=== PATIENT | female | born 1995 | race Caucasian/White ===

== ENCOUNTER 2024-09-10 08:56 | Outpatient (CLI) | payer OTHER, SELFPAY | END 2024-09-10 08:57 | disposition home or self-care (01) | LOC: NFLDREF 09-15 02:04 | PROVIDERS: Visit Provider Physician Assistant | DX: Z13.6 Encounter for screening for cardiovascular disorders (principal); Z13.1 Encounter for screening for diabetes mellitus; Z13.29 Encounter for screening for other suspected endocrine disorder | CPT/HCPCS: 80061; 82947; 84443 ==

== ENCOUNTER 2024-12-03 09:19 | Outpatient (CLI) | payer OTHER, SELFPAY ==
[2024-12-03 15:27] LABS: Chlamydia DNA Amplified* NOT DETECTED (No Detected); GC DNA Amplified* NOT DETECTED (No Detected)
== END 2024-12-03 09:20 | disposition home or self-care (01) ==
PROVIDERS: Visit Provider Advanced Practice Midwife
DX: Z34.91 Encounter for supervision of normal pregnancy, unspecified, first trimester (principal); Z3A.08 8 weeks gestation of pregnancy
CPT/HCPCS: 76817; 83020; 83021; 85660; 86592; 86703; 86704; 86706; 86762; 86787; 86803; 86850; 86900; 86901; 87086; 87340; 87491; 87591

== ENCOUNTER 2025-01-28 15:11 | Outpatient (CLI) | payer OTHER, SELFPAY | END 2025-01-28 15:12 | disposition home or self-care (01) | LOC: NFLDREF 15:13 | PROVIDERS: Visit Provider Advanced Practice Midwife | DX: Z34.92 Encounter for supervision of normal pregnancy, unspecified, second trimester (principal) | CPT/HCPCS: 81511 ==

== ENCOUNTER 2025-02-18 11:55 | Outpatient (CLI) | payer OTHER, SELFPAY ==
--- NOTE | 2025-02-18 12:15 | CRLHL7_ITS ---
For Patients: As a result of the 21st Century Cures Act, medical imaging exams and procedure reports are released immediately into your electronic medical record. You may view this report before your referring provider. If you have questions, please contact your health care provider. OB ULTRASOUND ANATOMY SURVEY, TRANSABDOMINAL LMP: 10/11/2024. DION by LMP: 07/08/2025. GA: 20 w, 0 d. INDICATION: anatomy. TECHNIQUE: Real time patton scale imaging of the fetus was performed. Evaluate anatomy. Transabdominal imaging performed. position: Vertex. Cervix: Visualized. Technique: Transabdominal. Length of closed cervix: 4.2 cm. Placenta/cord: Posterior. Technique: Transabdominal. Placenta tip to internal OS: 5.8 cm. Umbilical Cord: 3-vessel cord. Placenta insertion: Eccentric. Amniotic Fluid: 3.5 cm SDP (greater than/equal to: 2- less than 8 cm). SURVEY: Observed Structures. Calvarium/Spine: Cerebellum: 2.0 cm, 20 w 5 d. Cisterna Magna: 4.5 mm. Nuchal Fold: 4.2 mm. Lateral Ventricle: 5.5 mm. CSP: Yes. Midline Falx: Yes. Choroid Plexus: Yes. Spine: Yes. Abdomen: Stomach: Yes. Abd Cord Insertion: Yes. Urinary Bladder: Yes. Kidneys: Yes. Diaphragm: Yes. Face: Nose/lips: Yes. Orbital view: Yes. Profile: Yes. Limbs: Upper Extremities: Yes. Lower Extremities: Yes. Hands: Yes. Feet: Yes. Vascular: 4-Chamber Heart: Yes. LVOT: Yes. RVOT: Yes. 3VV: Yes. 3VTV: Yes. BPD: 4.8 cm. 20 w, 3 d, 66.5 percent. HC: 18.1 cm. 20 w, 4 d, 66.2 percent. AC: 15.6 cm. 20 w, 5 d, 69.0 percent. FL: 3.3 cm. 20 w, 2 d, 51.3 percent. FL/AC ratio: 21.07 percent. HC/AC ratio: 1.16. heart rate: 147 bpm. age by this US: 20 w, 4 d. DION by this US: 07/04/2025. EFW: 358.43 g. Weight: 0 lbs, 13 oz. Percentile by DION: 74.3 percent. IMPRESSION: 1. Concordance of clinical and sonographic dating. 2. Incidental eccentric placental cord insertion. 3. Normal anatomic survey. Maurilio Lopez M.D. Diagnostic Radiologist [email or web address] SP/Dictated by: Maurilio Lopez MD @ 02/18/2025 4:30:00 PM (Electronically Signed)
== END 2025-02-18 11:56 | disposition home or self-care (01) ==
LOC: US 11:56
PROVIDERS: Visit Provider Advanced Practice Midwife
DX: Z34.92 Encounter for supervision of normal pregnancy, unspecified, second trimester (principal); Z3A.20 20 weeks gestation of pregnancy
CPT/HCPCS: 76805

== ENCOUNTER 2025-03-14 18:02 | Outpatient (CLI) | payer OTHER, SELFPAY | END 2025-03-14 18:03 | disposition home or self-care (01) | LOC: NFLDREF 03-24 23:18 | PROVIDERS: Visit Provider Nurse Practitioner Family | DX: R19.7 Diarrhea, unspecified (principal) | CPT/HCPCS: 87045; 87046; 87177; 87209; 87427; 87493; 87505 ==

== ENCOUNTER 2025-04-15 09:40 | Outpatient (CLI) | payer OTHER, SELFPAY | END 2025-04-15 09:41 | disposition home or self-care (01) | LOC: NFLDREF 04-21 17:04 | PROVIDERS: Visit Provider Advanced Practice Midwife | DX: Z34.93 Encounter for supervision of normal pregnancy, unspecified, third trimester (principal) | CPT/HCPCS: 86592 ==

== ENCOUNTER 2025-05-13 10:28 | Outpatient (CLI) | payer OTHER, SELFPAY ==
--- NOTE | 2025-05-13 10:45 | CRLHL7_ITS ---
For Patients: As a result of the Cures Act, medical imaging exams and procedure reports are released immediately into your electronic medical record. You may view this report before your referring provider. If you have questions, please contact your health care provider. OB ULTRASOUND FOLLOW-UP/LIMITED CLINICAL HISTORY: Supervision of normal 1st . TECHNIQUE: Real time patton scale imaging of the fetus was performed. Transabdominal imaging performed. FINDINGS: LMP: 10/01/2024. DION by LMP: 07/08/2025. GA: 32 weeks 0 days. Cervix: Not visualized. Positioning: Vertex. Amniotic Fluid: 4.6 cm SDP. Placenta: Technique: TA. Placenta Position: Posterior. Dopplers: Heart Rate: 145 bpm. BIOMETRY BPD: 8.4 cm, 33 weeks 6 days. 90% HC: 30.2 cm, 33 weeks 3 days. 53% AC: 29.4 cm, 33 weeks 3 days. 85% FL: 6.0 cm, 31 weeks 3 days. 21% FL/AC Ratio: 20.51% HC/AC Ratio: 1.03. EFW: 2066 grams, 4 lb 9 oz. Age by this US: 33 weeks 0 days. DION by this US: 07/01/2025. Percentile by DION: 68% IMPRESSION: 1. Sonographic gestational age 33 weeks 0 days and sonographic due date 07/01/2025. Sonographic age is 1 week ahead of the clinical age. 2. Estimated weight 68th percentile. Abdominal circumference 85th percentile. Maurilio Lopez M.D. Diagnostic Radiologist [email or web address] Transcribed: 1:13 pm DW/Dictated by: Maurilio Lopez MD @ 05/13/2025 12:08:00 PM (Electronically Signed)
== END 2025-05-13 10:29 | disposition home or self-care (01) ==
LOC: US 10:29
PROVIDERS: Visit Provider Advanced Practice Midwife
DX: Z34.83 Encounter for supervision of other normal pregnancy, third trimester (principal); Z3A.33 33 weeks gestation of pregnancy
CPT/HCPCS: 76816

== ENCOUNTER 2025-05-16 20:12 | Outpatient (CLI) | payer OTHER, SELFPAY ==
[2025-05-16 20:27] VITALS: BP 122/82; PULSE 98; RESP 20; TEMP 36.5
[2025-05-16 20:41] LABS: Appearance Urine Clear (Clear)
--- NOTE | 2025-05-16 21:27 | PC.OBNST ---
NST Note NST Note Start: 05/16/25 20:16 Freq: ONCE Status: Active Protocol: Document 05/16/25 21:25 [facility] (Rec: 05/16/25 21:27 [facility] Desktop) NST Note 1 Para (# of births) 0 EDC 07/08/25 Gestational Age In 32 Weeks & 3 Days Weeks & Days Patient Presented Contractions/cramping with Complaint(s) of Reactive Yes Appropriate for Yes Gestational Age RN SMalterer RN Date 05/16/25 Reactive Yes Appropriate for Yes Gestational Age RN CMillet RN Date 05/16/25 OB NST charge Yes Complete NST Note Yes via Write Note The provider's electronic signature indicates the NST is reactive/appropriate for gestational age. *Note to provider: If an addendum is required, open the patient's chart and click on the note under the Nurse/Allied Health tab.
== END 2025-05-16 21:05 | disposition home or self-care (01) ==
LOC: OB OUT 20:12 → OB 20:12
PROVIDERS: Visit Provider Advanced Practice Midwife
DX: O47.03 False labor before 37 completed weeks of gestation, third trimester (principal); Z3A.32 32 weeks gestation of pregnancy
CPT/HCPCS: 59025; 81001; 81003; 87086; G0463